=== PATIENT | male | born 1995 ===

== ENCOUNTER 2020-05-07 22:07 | Emergency (ER) | payer BC, SELFPAY ==
[2020-05-07 22:14] VITALS: BP 136/99; PULSE 73; RESP 12; TEMP 36.6; O2SAT 100
[2020-05-08 00:03] VITALS: BP 142/99; PULSE 69; RESP 16; O2SAT 100
--- NOTE | 2020-05-08 00:12 | ED.ALLEREA ---
HPI - Allergic Reaction General Chief complaint: Allergic Reaction Stated complaint: allergic reaction - hives since yesterday Time Seen by Provider: 05/08/20 00:06 History of Present Illness HPI narrative: Pruritic raised red rash since yesterday. Started 30 minutes after taking Tylenol. He has taken it before, not for a long time. No other exposures that he can think of. Tried Benadryl at home without relief. Seen at urgent care yesterday and started on prednisone taper. Came in tonight, because it is not getting any better. No SOB. No swelling of lips, tongue, or throat. Related Data Allergies Allergy/AdvReac Type Severity Reaction Status Date / Time No Known Allergies Allergy Verified 05/07/20 22:18 Review of Systems Review of Systems: All systems reviewed & are unremarkable except as noted in HPI and below Constitutional: Constitutional: Denies chills and Denies fever(s) ENT: Reports system reviewed and no additional complaints, except as documented Cardiovascular: Cardiovascular: Reports chest pain Respiratory: Respiratory: Denies chest congestion and Denies dyspnea Gastrointestinal: Gastrointestinal: Reports no additional gastrointestinal complaints Integumentary/Breasts: Skin/Breast: Reports pruritus, Reports erythema and Reports rash Neurologic: Reports system reviewed and no additional complaints, except as documented, Denies dizziness and Denies weakness Allergic/Immunologic: Allergic/Immunologic: Denies lip swelling, Denies throat swelling, Denies tongue swelling and Denies wheezing PMFSH Past Medical History Medical History Allergies Anxiety Asthma Depression GERD (gastroesophageal reflux disease) Tear of meniscus of left knee (~02/2020) Surgical History Surgical History H/O lateral meniscus repair of left knee (~03/23/20) Family History Family History Mother Asthma Father Hypertension Hyperlipidemia Grandparent , Age 60 Kidney disease Social History Social History Smoking status: Never smoker Alcohol intake: current Substance use: current Substance use type: marijuana Exam Const: General: healthy appearing, no acute distress and alert Orientation/consciousness: patient oriented x3 HENMT: Head: normal to inspection Mouth: Yes Normal oral and palatal mucosa present and Yes lip normal Throat: posterior oropharynx normal Neck: Neck: normal visual inspection and no lymphadenopathy Chest: Chest palpation & inspection: no tenderness Resp: Effort & Inspection: normal respiratory effort Auscultation: clear to auscultation bilaterally, no rales, no rhonchi and no wheezes Cardio: Jugular venous distension: no JVD Rate: regular rate Rhythm: regular rhythm Heart sounds: no murmurs GI: Inspection: non-distended GI Palp: Yes Soft to palpation and No Tenderness to palpation present (GI) Skin: Other: hives of bilateral lower extremities. Neuro: General: patient oriented x3 and moves all extremities Speech: normal speech Gait exam (Neuro): Normal gait present Extrem: General: no edema Psych: Appearance: well kempt Affect: normal affect Course Vital Signs Vital signs: Vital Signs Temperature 36.6 C 05/07/20 22:14 Pulse Rate 73 05/07/20 22:14 Respiratory Rate 12 05/07/20 22:14 Blood Pressure 136/99 H 05/07/20 22:14 Pulse Oximetry 100 05/07/20 22:14 Temperature 36.6 C 05/07/20 22:14 Pulse Rate 75 05/08/20 01:05 Respiratory Rate 13 05/08/20 01:05 Blood Pressure 144/72 H 05/08/20 01:05 Pulse Oximetry 100 05/08/20 01:05 MDM - Allergic Reaction MDM Narrative Medical decision making narrative: Significant improvement after treatment. No sign of anaphylaxis or severe allergic reaction. Differentia
[2020-05-08] MEDS: FAMOTIDINE 20 MG/2 ML VIAL IV PUSH (00:26)
[2020-05-08] MEDS: SODIUM CHLORIDE 0.9% IV 1,000 ML 999 ML IV CONT (00:26)
[2020-05-08] MEDS: diphenhydrAMINE HCl INJ 50 MG/ML VIAL 25 MG IV PUSH (00:26)
[2020-05-08] MEDS: EPINEPHrine HCL INJ 1 MG/ML AMPUL 0.3 MG IM (00:26)
[2020-05-08 01:05] VITALS: BP 144/72; PULSE 75; RESP 13; O2SAT 100
[2020-05-08 01:55] VITALS: BP 130/74; PULSE 67; RESP 12; O2SAT 100
== END 2020-05-08 01:55 | disposition home or self-care (01) ==
PROVIDERS: Emergency Provider Emergency Medicine; PCP Internal Medicine
DX: L50.9 Urticaria, unspecified (principal); J45.909 Unspecified asthma, uncomplicated; K21.9 Gastro-esophageal reflux disease without esophagitis
CPT/HCPCS: 96361; 96372; 96374; 96375; 99284; J0171; J1200; J7030

== ENCOUNTER 2022-09-20 08:06 | Emergency (ER) | payer OTHER, SELFPAY ==
[2022-09-20 08:16] VITALS: BP 152/83; PULSE 68; RESP 16; TEMP 36.2; O2SAT 99
--- NOTE | 2022-09-20 08:43 | ED.SKABFB ---
HPI - Skin/Abscess/Foreign Bdy General Chief complaint: Skin/Abscess/Foreign Body Stated complaint: Rash Time Seen by Provider: 09/20/22 08:36 Source: patient, RN notes reviewed and old records reviewed Mode of arrival: ambulatory Limitations: no limitations History of Present Illness HPI narrative: 27 year old male who presents to [facility] care with complaints of lesions on his lower extremities since Monday 5 days ago. Patient has several round lesions on bilateral legs and on feet, some of the lesions on thighs are fluid filled size ranging from 0.5cm round to 1.5 cm diameter, no central clearing of lesions noted, no surrounding redness. Patient denies any exposure to new contacts,no new animals, food,or medications. Patient reports that initially areas were itchy, sprayed Lotrimin on lesions which helped itching. Patient reports no one else in family has similar lesions. MD complaint: lesion Onset (ago): day(s) (5) Treatments prior to arrival: other (application of Lotrimin) Related Data Allergies Allergy/AdvReac Type Severity Reaction Status Date / Time No Known Allergies Allergy Verified 09/20/22 08:20 Review of Systems Review of Systems: CONSTITUTIONAL: Denies fever, chills, or sweats. CARDIOVASCULAR: Denies chest pain, palpitations, or edema. RESPIRATORY: Denies cough or dyspnea. SKIN: Reports several round lesions on bilateral legs some are fluid filled others scabbing initially itchy, not presently MUSCULOSKELETAL: Denies joint pain or myalgia. NEUROLOGIC: Denies headache, numbness, or weakness. All systems reviewed & are unremarkable except as noted in HPI and below PMFSH Past Medical History Medical History (Updated 09/21/22 @ 07:38 by Jaylene Ricketts NP) Allergies Anxiety Asthma Depression GERD (gastroesophageal reflux disease) Tear of meniscus of left knee (~02/2020) Surgical History Surgical History (Updated 09/21/22 @ 07:31 by Jayleen Ricketts NP) H/O lateral meniscus repair of left knee (~03/23/20) S/P arthroscopic surgery of right knee Family History Family History Mother Asthma Father Hypertension Hyperlipidemia Grandparent , Age 60 Kidney disease Social History Social History Smoking status: Never smoker Alcohol intake: current Substance use: current Substance use type: marijuana Comments At time of signature, agree with nursing past medical, surgical, social and family history. There is no relevant family history pertinent to the presenting complaint Exam Narrative: GENERAL: Well-appearing, well-nourished, and in no acute distress. HEAD: Normocephalic, atraumatic. EYES: PERRLA, conjunctivae clear, and EOMI. ENT: Mucous membranes moist. Oropharynx without edema, erythema or lesions. NECK: Supple. No lymphadenopathy CHEST: Clear to auscultation. No respiratory distress. HEART: Regular rate and rhythm. SKIN: Warm, dry.? several round lesions on legs and to top of feet and sides some are fluid filled on thigh area, some scabbed,no present itching.No central clearing of lesions. Lesion range in size from 0.5 cm to 1.5cm diameter.Denies any exposure to new allergens or being in maki, no surrounding redness of lesions. NEURO:? Alert and oriented x3. PSYCH: Normal mood and affect Course Course Emergency Course: Patient is aware of diagnosis, understands and agrees to treatment plan.? Anticipatory guidance given.? Patient agrees to follow-up as directed and is aware of reasons to seek care at the emergency department. Portions of this record may have been created with voice recognition software Level of Care: Express Care Visit Vital Signs Vital signs: Vital Signs Temperature 36.2 C L 09/20/22 08:16 Pulse Rate 68 09/20/22 08:16 Respiratory Rate 16 09/20/22 08:16 Blood Pressure 152/83 H 09/20/22 08:16 P
== END 2022-09-20 08:45 | disposition home or self-care (01) ==
PROVIDERS: Emergency Provider Registered Nurse
DX: L25.9 Unspecified contact dermatitis, unspecified cause (principal); F12.90 Cannabis use, unspecified, uncomplicated; K21.9 Gastro-esophageal reflux disease without esophagitis; J45.909 Unspecified asthma, uncomplicated
CPT/HCPCS: 99213; G0463

== ENCOUNTER 2023-02-06 09:55 | Emergency (ER) | payer OTHER, SELFPAY ==
[2023-02-06 10:06] VITALS: BP 144/91; PULSE 68; RESP 16; TEMP 36.8; O2SAT 99
[2023-02-06 10:09] VITALS: BP 144/91; PULSE 68; RESP 16; TEMP 36.8; O2SAT 99
--- NOTE | 2023-02-06 10:30 | ED.NAVMDI ---
HPI - Nausea/Vomiting/Diarrhea General Chief complaint: Nausea/Vomiting/Diarrhea Stated complaint: stomach pain,vomiting Time Seen by Provider: 02/06/23 10:18 Source: patient and RN notes reviewed Mode of arrival: ambulatory Limitations: no limitations History of Present Illness HPI Narrative: Patient presents today complaining of this nausea and vomiting since yesterday. Reports he vomited 3 times yesterday, and none so far today, although he is still nauseated. He also reports some periumbilical abdominal pain since yesterday that he currently rates 09/03. Denies diarrhea or constipation. Denies known fever, but states he was having some chills and sweats last night. He has tried no medication for symptoms prior to arrival. States he has had intermittent abdominal pain similar to his current pain over the last couple of months that has resolved on its own. Related Data Home Medications Medication Instructions Recorded Confirmed albuterol sulfate 2.5 mg/3 mL mg 02/06/23 (0.083 %) solution for nebulization Allergies Allergy/AdvReac Type Severity Reaction Status Date / Time No Known Allergies Allergy Verified 02/06/23 09:59 Review of Systems Review of Systems: CONSTITUTIONAL: Denies body aches, fever.+ sweats, chills EYES: Denies visual changes, redness, or discharge. ENT: Denies rhinorrhea, congestion, sore throat, or otalgia. CARDIOVASCULAR: Denies chest pain, palpitations, or edema. RESPIRATORY: Denies cough or dyspnea. GASTROINTESTINAL: Denies diarrhea.+ nausea, vomiting, diarrhea GENITOURINARY: Denies dysuria or hematuria. SKIN: Denies rash, itching, or wounds. MUSCULOSKELETAL: Denies back pain, joint pain, or myalgia. NEUROLOGIC: Denies headache, numbness, tingling, or weakness. PSYCH: Denies depression or anxiety. [facility] Past Medical History Medical History Allergies Anxiety Asthma Depression GERD (gastroesophageal reflux disease) Tear of meniscus of left knee (~02/2020) Surgical History Surgical History H/O lateral meniscus repair of left knee (~03/23/20) S/P arthroscopic surgery of right knee Family History Family History Mother Asthma Father Hypertension Hyperlipidemia Grandparent , Age 60 Kidney disease Social History Social History Smoking status: Never smoker Alcohol intake: current Substance use: current Substance use type: marijuana Comments At time of signature, I have reviewed and agree with nursing past medical, surgical, social and family history unless otherwise noted. Please see nursing chart for further information. There is no relevant family history pertinent to the presenting complaint Exam Narrative: GENERAL: Well-appearing, well-nourished, and in no acute distress. HEAD: Normocephalic, atraumatic. EYES: EOMI. No redness or drainage. Conjunctivae normal. ENT: Mucous membranes pink and moist. NECK: Normal AROM. CHEST: No respiratory distress. Clear to auscultation. HEART: Regular rate and rhythm. No murmur appreciated. Normal peripheral pulses. ABDOMEN: Soft, nondistended, normal active bowel sounds. Mildly tender at the umbilicus without rebound or guarding. EXTREMITIES: Normal range of motion. No edema. SKIN: Warm, dry, no rash. Capillary refill normal. Normal skin turgor. NEURO: No focal deficits. Alert and oriented x3. Gait steady. PSYCH: Normal affect. No signs of depression or anxiety. Course Course Level of Care: Express Care Visit Vital Signs Vital signs: Vital Signs Temperature 98.2 F 02/06/23 10:06 Pulse Rate 68 02/06/23 10:06 Respiratory Rate 16 02/06/23 10:06 Blood Pressure 144/91 H 02/06/23 10:06 Pulse Oximetry 99 02/06/23 10:06 Oxygen Deliver
[2023-02-06] MEDS: ONDANSETRON HCL ODT 4 MG TABLET 8 MG SUBLINGUAL (10:36)
== END 2023-02-06 11:15 | disposition home or self-care (01) ==
PROVIDERS: Emergency Provider Nurse Practitioner
DX: R11.2 Nausea with vomiting, unspecified (principal); F12.90 Cannabis use, unspecified, uncomplicated; J45.909 Unspecified asthma, uncomplicated; K21.9 Gastro-esophageal reflux disease without esophagitis
CPT/HCPCS: 99213; A9270; G0463

== ENCOUNTER 2023-10-26 18:01 | Emergency (ER) | payer OTHER, SELFPAY ==
--- NOTE | ~2023-10-26 | XR_ITS ---
EXAMINATION: XR chest 1V portable DATE: 10/26/2023 20:38 INDICATION: Chest pain TECHNIQUE: AP view of the chest was obtained. COMPARISON: None FINDINGS: The lungs are clear with no focal airspace opacities, pulmonary edema, pleural effusion or pneumothor ax. The cardiomediastinal silhouette is normal. Visualized bones and soft tissues are unremarkable. IMPRESSION: 1. No acute cardiopulmonary disease. Reviewed, dictated and finalized at location A.
[2023-10-26 18:24] VITALS: BP 131/110; PULSE 86; RESP 20; TEMP 36.7; O2SAT 100
--- NOTE | 2023-10-26 20:22 | ECG_ITS ---
Test Date: 2023-10-26 18:07:37 Measurements Intervals [place] Rate: 90 P: 78 [place]: 150 QRS: 35 QRSD: 98 T: 77 QT: 347 QTc: 426 Interpretive Statements SINUS RHYTHM WITHIN NORMAL LIMITS No previous ECG available for comparison Electronically Signed On 10-27-2023 11:14:34 CDT by Mesfin Negron M.D.
[2023-10-26 20:28] VITALS: PULSE 72; RESP 16; TEMP 36.4; O2SAT 100
[2023-10-26 20:29] VITALS: PULSE 77; O2SAT 100
[2023-10-26 20:44] VITALS: O2SAT 100
[2023-10-26 20:55] LABS: Basophils Absolute Auto 0.1 K/mm3 (0.0-0.1); Eosinophils Absolute Auto 0.2 K/mm3 (0-0.3); Eosinophils Percent Auto 1.8 % (0-4.4); Hematocrit 45.3 % (42.0-52.0); Hemoglobin 15.2 g/dL (14.0-18.0); Immature Granulocyte Absolute 0.02 K/mm3 (0.00-0.031); Immature Granulocyte Percent A 0.2 % (0-0.5); Lymphocytes Absolute Auto 2.83 K/mm3 (0.9-3.2); Lymphocytes Percent Auto 34.5 % (18.3-44.2); Mean Corpuscular HGB Conc 33.6 g/dl (32-36); Mean Corpuscular Hemoglobin 30.1 pg (26-34); Mean Corpuscular Volume 89.7 fl (80-100); Mean Platelet Volume 9.9 fl (7.4-10.4); Monocytes Absolute Auto 0.7 K/mm3 (0.1-0.6); Neutrophils Absolute Auto 4.5 K/mm3 (1.3-6.7); Neutrophils Percent Auto 54.5 % (45.5-73.1); Platelet Count Result 348 k/mm3 (150-375); Red Blood Count 5.05 M/mm3 (4.6-6.20); Red Cell Distribution Width 11.9 % (11.5-14.5); White Blood Count 8.2 K/mm3 (4.5-10.0)
--- NOTE | 2023-10-26 20:55 | ED.GENADULT ---
HPI - General Adult General Chief complaint: Chest Pain Stated complaint: CHEST PAIN Time Seen by Provider: 10/26/23 20:22 History of Present Illness HPI narrative: Patient 20-year-old gentleman presents emergency department chief complaint of chest discomfort and anxiety. The patient reports he has been more anxious lately and reports that he has been having some discomfort in his chest the patient reports been ongoing since 27 reports he has no prior history of cardiac disease reports no family history of early cardiac disorders Related Data Home Medications Medication Instructions Recorded Confirmed albuterol sulfate 2.5 mg/3 mL mg 02/06/23 (0.083 %) solution for nebulization Allergies Allergy/AdvReac Type Severity Reaction Status Date / Time No Known Allergies Allergy Verified 10/26/23 18:27 Review of Systems Review of Systems: A 10 system review of systems was completed on the patient and is negative except for what is stated in the HPI. Nursing and ancillary documentation was reviewed. [facility] Past Medical History Medical History Allergies Anxiety Asthma Depression GERD (gastroesophageal reflux disease) Tear of meniscus of left knee (~02/2020) Surgical History Surgical History H/O lateral meniscus repair of left knee (~03/23/20) S/P arthroscopic surgery of right knee Family History Family History Mother Asthma Father Hypertension Hyperlipidemia Grandparent , Age 60 Kidney disease Social History Social History Smoking status: Never smoker Alcohol intake: current Substance use: current Substance use type: marijuana Exam Narrative: GENERAL: Well-appearing, well-nourished, and in no acute distress. HEAD: Normocephalic, atraumatic. EYES: PERRLA and EOMI. ENT: Nares clear, no rhinorrhea or epistaxis. Mucous membranes moist. NECK: Supple. CHEST: Clear to auscultation. No respiratory distress. HEART: Regular rate and rhythm. No murmur heard. Normal peripheral pulses. ABDOMEN: Soft, nontender, nondistended, normal active bowel sounds. EXTREMITIES: Normal range of motion. No edema. SKIN: Warm, dry, no rash. NEURO: No focal deficits. Alert and oriented x3. PSYCH: Normal mood and affect. Course Vital Signs Vital signs: Vital Signs Temperature 36.7 C 10/26/23 18:24 Pulse Rate 86 10/26/23 18:24 Respiratory Rate 20 10/26/23 18:24 Blood Pressure 131/110 H 10/26/23 18:24 Pulse Oximetry 100 10/26/23 18:24 Oxygen Delivery Room Air 10/26/23 18:24 Temperature 36.4 C 10/26/23 22:49 Pulse Rate 69 10/26/23 22:49 Respiratory Rate 18 10/26/23 22:49 Blood Pressure 125/87 10/26/23 22:49 Pulse Oximetry 100 10/26/23 22:49 Oxygen Delivery Room Air 10/26/23 20:44 Medical Decision Making MDM Narrative Medical decision making narrative: Differential diagnosis includes ACS, atypical chest pain, anxiety, gastroesophageal reflux disease, asthma, pneumothorax Laboratory studies were obtained on the patient showed normal CBC CMP was within normal limits troponin was negative BNP was -3 hour delta troponin was negative lipase was normal chest x-ray showed no pneumothorax no pneumonia EKG showed no acute ischemic changes Vital Signs Vital Signs: Vital Signs Temperature 36.7 C 10/26/23 18:24 Pulse Rate 86 10/26/23 18:24 Respiratory Rate 20 10/26/23 18:24 Blood Pressure 131/110 H 10/26/23 18:24 Pulse Oximetry 100 10/26/23 18:24 Oxygen Delivery Room Air 10/26/23 18:24 Temperature 36.4 C 10/26/23 22:49 Pulse Rate 69 10/26/23 22:49 Respiratory Rate 18 10/26/23 22:49 Blood Pressure 125/87 10/26/23 22:49 Pulse Oximetry 100 10/26/23 22:49 Ox
[2023-10-26 21:07] LABS: Prothrombin Time 14.1 Seconds (11.1-14.7)
[2023-10-26 21:09] LABS: Alanine Aminotransferase 22 U/L (6-50); Albumin Level 5.5 g/dL (3.5-5.1); Alkaline Phosphatase 107 U/L (38-126); Anion Gap 18 mmol/L (4-12); Aspartate Amino Transferase 36 U/L (17-59); Blood Urea Nitrogen 11 mg/dL (9-20); Calcium 9.9 mg/dL (8.4-10.2); Carbon Dioxide 17 mmol/L (22-30); Chloride 106 mmol/L (98-107); Estimated CRCL calculation 131 ml/min; Estimated Glomerular Filt Rate > 60; Glucose 79 mg/dL (65-110); Lipase 73 U/L (23-300); Potassium 3.4 mmol/L (3.4-5.0); Sodium 141 mmol/L (137-145)
[2023-10-26 21:17] LABS: NT Pro B Type Natriuretic Pept < 20 pg/mL (19.9-100)
[2023-10-26 21:21] LABS: Troponin I < 0.012 ng/mL (0.000-0.034)
[2023-10-26 22:49] VITALS: BP 125/87; PULSE 69; RESP 18; TEMP 36.4; O2SAT 100
--- NOTE | 2023-10-26 22:49 | ECG_ITS ---
Test Date: 2023-10-26 22:59:17 Measurements Intervals [place] Rate: 56 P: 80 [place]: 146 QRS: 34 QRSD: 106 T: 52 QT: 421 QTc: 409 Interpretive Statements SINUS BRADYCARDIA OTHERWISE NORMAL ECG Compared to ECG 10/26/2023 18:07:37 HEART RATE REDUCED, NO OTHER DIFFERENCE Electronically Signed On 10-27-2023 11:24:46 CDT by Mesfin Negron M.D.
[2023-10-26 23:19] LABS: Troponin I < 0.012 ng/mL (0.000-0.034)
== END 2023-10-26 23:36 | disposition home or self-care (01) ==
PROVIDERS: Emergency Provider Emergency Medicine; PCP Nurse Practitioner
DX: R07.89 Other chest pain (principal)
CPT/HCPCS: 36415; 71045; 80053; 83690; 83880; 84484; 85025; 85610; 85730; 93005; 99284

== ENCOUNTER 2023-11-16 14:17 | Outpatient (CLI) | payer OTHER, SELFPAY ==
--- NOTE | ~2023-11-16 | US_ITS ---
EXAMINATION: US scrotum doppler DATE: 11/16/2023 14:49 INDICATION: Left testicular lump TECHNIQUE: Testicular sonogram utilizing grayscale and Doppler COMPARISON: None. FINDINGS: The right testis measures 4.8 x 2.4 x 3.4 cm. The left testis measures 5.0 x 2.2 x 3.2 cm. Symmetric normal grayscale appearance to both testes. There is normal vascular flow to both testes. The right e pididymis is normal with normal vascular flow. The left epididymis is normal with normal vascular andrez w. Mild left varicocele with mildly dilated vessels measuring up to 3 mm which are located near the r egion of the palpable abnormality. No hydrocele. IMPRESSION: 1. Mild left varicocele in the region of the palpable abnormality. Otherwise normal scrotal ultrasou nd. Reviewed, dictated and finalized at location A. IMPRESSION: 1. Mild left varicocele in the region of the palpable abnormality. Otherwise n ormal scrotal ultrasound.
== END 2023-11-16 14:18 ==
LOC: MICIMG 14:18
PROVIDERS: PCP Internal Medicine; Visit Provider Nurse Practitioner
DX: N50.89 Other specified disorders of the male genital organs (principal)
CPT/HCPCS: 76870; 93976

== ENCOUNTER 2023-12-30 08:26 | Emergency (ER) | payer OTHER, SELFPAY ==
[2023-12-30 08:39] VITALS: BP 146/83; PULSE 77; RESP 16; TEMP 37.1; O2SAT 98
--- NOTE | 2023-12-30 08:44 | ED.SKABFB ---
HPI - Skin/Abscess/Foreign Bdy General Chief complaint: Skin/Abscess/Foreign Body Stated complaint: face swollen,bumps on body allergic reaction Time Seen by Provider: 12/30/23 08:44 Source: patient, RN notes reviewed and old records reviewed Mode of arrival: ambulatory Limitations: no limitations History of Present Illness HPI narrative: patient presents with complaints of scattered itchy rash, primarily on the right side of the face and the right side of the body. He reports that he has had a rash for couple of days, worsening. He reports that this happens about once a year. He cannot think of any triggers. Denies any sneezing, coughing, wheezing, shortness of breath. Denies any change in lotions, soaps, detergents. No unusual foods, drinks, medicine Related Data Home Medications Medication Instructions Recorded Confirmed albuterol sulfate 90 mcg/actuation See Rx Instructions .Route .COMPLEX 12/30/23 12/30/23 aerosol inhaler fexofenadine 180 mg tablet 180 mg PO DAILY 12/30/23 12/30/23 Allergies Allergy/AdvReac Type Severity Reaction Status Date / Time No Known Allergies Allergy Verified 12/30/23 08:29 Review of Systems Review of Systems: All systems reviewed & are unremarkable except as noted in HPI and below Constitutional: Constitutional: Reports no additional constitutional complaints ENT: Reports system reviewed and no additional complaints, except as documented Cardiovascular: Cardiovascular: Reports no additional cardiovascular complaints Respiratory: Respiratory: Reports no additional respiratory complaints Gastrointestinal: Gastrointestinal: Reports no additional gastrointestinal complaints Allergic/Immunologic: Allergic/Immunologic: Reports as per HPI, Reports urticaria, Denies throat swelling, Denies tongue swelling and Denies wheezing PMFSH Past Medical History Medical History Allergies Anxiety Asthma Depression GERD (gastroesophageal reflux disease) Tear of meniscus of left knee (~02/2020) Surgical History Surgical History H/O lateral meniscus repair of left knee (~03/23/20) S/P arthroscopic surgery of right knee Family History Family History Mother Asthma Father Hypertension Hyperlipidemia Grandparent , Age 60 Kidney disease Social History Social History (Updated 11/15/23 @ 10:35 by Jen Corado [employer]) Smoking status: Current some day smoker Smokeless tobacco user: other Second hand tobacco smoke exposure: No Alcohol intake: current Drinks per week: 4 Substance use: current Substance use type: marijuana Do You Feel Safe in your Home?: Yes Lack of Transportation: No Lack of Food: Never True Current Housing: I Have Housing Concerned About Future Housing: No Difficulty Paying Gas/Electric Bills: No Difficulty Paying for Meds: No Currently Unemployed: No Education: High School Diploma/GED Difficulty w/ Childcare or Family Care: No Living arrangements: with family Occupation/Education: occupation Gender identity (if verbalized by the patient): Male Agree to blood products: Yes Comments At the time of my signature, I reviewed and agree with the nursing past medical, surgical, social, and family history. There is no relevant family history pertinent to the patient complaint. Exam Const: General: cooperative, no acute distress, alert and awake Orientation/consciousness: oriented to person, oriented to place and oriented to time HENMT: Head: normal to inspection Mouth: Yes moist mucous membranes Resp: Effort & Inspection: normal respiratory effort and able to speak in complete sentences Auscultation: clear to auscultation bilaterally, no crackles, no rales, no rhonchi and no wheezes Cardio: Palpation: normal PMI Rate: regul
== END 2023-12-30 09:01 | disposition home or self-care (01) ==
PROVIDERS: Emergency Provider Nurse Practitioner Family
DX: L30.9 Dermatitis, unspecified (principal); R03.0 Elevated blood-pressure reading, without diagnosis of hypertension; F41.8 Other specified anxiety disorders; J45.909 Unspecified asthma, uncomplicated; K21.9 Gastro-esophageal reflux disease without esophagitis
CPT/HCPCS: 99213; G0463